=== PATIENT | male | born 1955 | race Caucasian/White ===

== ENCOUNTER 2020-01-25 09:40 | Outpatient (CLI) | payer BC, SELFPAY | END 2020-01-25 09:41 | disposition home or self-care (01) | LOC: WOUND 09:45 | PROVIDERS: Family Provider Family Medicine; Visit Provider Thoracic Surgery (Cardiothoracic Vascular Surgery) | DX: M87.180 Osteonecrosis due to drugs, jaw (principal); T45.1X5A Adverse effect of antineoplastic and immunosuppressive drugs, initial encounter; Y92.9 Unspecified place or not applicable | CPT/HCPCS: G0463 ==

== ENCOUNTER → 2021-09-05 08:48 | Outpatient (BNVA) | payer MEDICARE, OTHER, SELFPAY | PROVIDERS: Family Provider Family Medicine; Referring Provider Registered Nurse; Visit Provider Surgery | DX: Z12.11 Encounter for screening for malignant neoplasm of colon (principal) | CPT/HCPCS: 99024 ==

== ENCOUNTER 2021-11-01 05:46 | Day surgery (SDC) | payer MEDICARE, SELFPAY ==
[2021-10-30 10:50] VITALS: BMI 28.1
[2021-11-01 06:08] VITALS: BP 151/106; PULSE 59; RESP 18; TEMP 36.2; O2SAT 99
[2021-11-01] MEDS: sodium chloride 0.9% 1,000 ML 30 ML IV (06:23)
--- NOTE | 2021-11-01 06:23 | W.PM.OPSFHP ---
Same Day Surgery H&P Indication for Procedure/HPI DATE OF PROCEDURE: November 01, 2021 CHIEF COMPLAINT/INDICATIONFOR SURGICAL PROCEDURE: Screening colonoscopy PREOP DIAGNOSIS: Screening colonoscopy PLANNED PROCEDURE: Operation Date: 11/01/21 07:00 Proposed Procedures p Colonoscopy 84336,Z12.11(Not Applicable) - Jose E Prince MD This is a pleasant 66 years old gentleman referred to my practice for screening colonoscopy. He never had a colonoscopy before and he reports no history of colon cancer. Used to have intermittent bleeding per rectum due to hemorrhoidal disease per his description. But nothing current and no previous abdominal surgeries. ROS All systems have been reviewed negative except as for the above or per problem list. Medications/Allergies* Home Medications Medication Instructions Recorded Confirmed Type amlodipine 10 mg tablet 10 mg PO DAILY 09/05/21 11/01/21 History Allergies/Adverse Reactions Allergy/AdvReac Type Severity Reaction Status Date / Time No Known Allergies Allergy Verified 11/01/21 06:27 Pertinent History/Comorbid Conditions* Social History Smoking and tobacco status: never smoked Pertinent Exam Findings alert, oriented x 3, clear to auscultation bilaterally, regular rate & rhythm and procedure specific exam findings (Abdominal exam nontender nondistended soft) Recommendations Surgery/Procedure today (Colonoscopy with possible biopsy) Other Plans: Plan of care; After thorough history and physical examination and reviewing the chart, plan to perform screening colonoscopy. I discussed with the patient in details the risks,benefits,alternatives and indications.The risk of aspiration, bleeding, soft tissue injury, perforation of the colon and other potential concomitant complications were explained to the patient in details,also the potential need for Laproscoy/Laparotomy to repair any related complications including but not limited to colectomy and or Closotomy.The patient understood this well and did agree to proceed. Rationale was carefully and clearly discussed with the patient.Appropriate informed consent have been reviewed and signed All questions have been answered and all concerns have been addressed to patient's satisfaction. Verbal and written Instructions were given to the patient for colonoscopy prep Coding Level of Care Code Acute Health Care Assistant for Bibiana Bradford
--- NOTE | 2021-11-01 06:57 | ANES.PREANE2 ---
Pre-Anesthetic Assessment Height/Weight: Height 1.73 m Weight 83.915 kg Temp Pulse Resp BP Pulse Ox O2 Del Method 97.2 F L 59 L 18 151/106 99 11/01/21 06:08 11/01/21 06:08 11/01/21 06:08 11/01/21 06:08 11/01/21 06:08 11/01/21 06:08 Preop Diagnosis: Screening colonoscopy Operation Date: 11/01/21 07:00 Proposed Procedures p Colonoscopy [id number],Z12.11(Not Applicable) - Jose E Prince MD Familial anesthetic complications: none Was Beta Gerri taken within 24 hours: N/A Was Clonidine taken within 24 hours: N/A Last intake: Intake Last Liquid Date 10/31/21 Last Liquid Time 23:00 Last Solid Date 10/30/21 Last Solid Time 19:00 Social No alcohol and No tobacco (quit 4 year ago) Exam alert, oriented x 3, clear to auscultation bilaterally and regular rate & rhythm Airway Submandibular: within normal limits Cervical ROM: within normal limits Mallampati: Class II Dentition: chipped Comments: Comments: very poor from radiation Pulmonary None reported CV/HEM Hypertension None reported Hepatic None reported GI None reported Metabolic None reported Musc/skel Lower Back Pain Neuropsych None reported Anesthetic Plan ASA status: 2 Anesthesia: MAC Risk of > 500 ml blood loss (7ml/kg in children): No Medications/Allergies Home Medications Medication Instructions Recorded Confirmed Last Taken Type amlodipine 10 mg tablet 10 mg PO DAILY 09/05/21 11/01/21 10/31/21 History Allergies Allergy/AdvReac Type Severity Reaction Status Date / Time No Known Allergies Allergy Verified 11/01/21 06:27 Current Medications Generic Name Dose Route Start Last Admin Trade Name Kymberly PRN Reason Stop Dose Admin Sodium Chloride 1,000 mls @ 30 mls/hr 11/01/21 06:00 11/01/21 06:23 Sodium Chloride 0.9% IV 11/02/21 05:59 30 mls/hr .Q24H LILIAN Administration PFSH Anesthesia Social History (Updated 09/18/20 @ 10:17 by Nanda Moralez LPN) Smoking and tobacco status: never smoked Data Anesthesia Cardiac Studies: No Data to Display
[2021-11-01 07:40] VITALS: BP 112/80; PULSE 70; RESP 16; TEMP 36.1; O2SAT 97
[2021-11-01 07:45] VITALS: BP 115/75; PULSE 65; RESP 16; O2SAT 97
--- NOTE | 2021-11-01 07:51 | ANE.PACU2 ---
Inpatient post-anesthesia follow up: Airway intact: Yes Vital signs: Temperature 97.0 F Pulse Rate 65 Respiratory Rate 16 Blood Pressure 115/75 Pulse Oximetry 97 Oxygen Delivery Me thod Room Air Oxygen Flow Rate Fraction of Inspir ed Oxygen Hydration adequate: Yes Nausea and vomiting: No Pain level: 1 Mental status: Baseline
[2021-11-01 07:55] VITALS: BP 112/76; PULSE 61; RESP 18; O2SAT 100
== END 2021-11-01 08:12 | disposition home or self-care (01) ==
PROVIDERS: PCP Family Medicine; Visit Provider Surgery
PROC: 0DJD8ZZ Inspection of Lower Intestinal Tract, Via Natural or Artificial Opening Endoscopic (ICD-10-PCS; CPT 45378; principal; 2021-11-01 07:00)
DX: Z12.11 Encounter for screening for malignant neoplasm of colon (principal); K57.30 Diverticulosis of large intestine without perforation or abscess without bleeding; D12.4 Benign neoplasm of descending colon; I10 Essential (primary) hypertension
CPT/HCPCS: 45385; 88305; J2704; J7030

== ENCOUNTER → 2021-11-14 14:51 | Outpatient (BNVA) | payer MEDICARE, SELFPAY | PROVIDERS: PCP Family Medicine; Visit Provider Surgery | DX: Z09 Encounter for follow-up examination after completed treatment for conditions other than malignant neoplasm (principal); K57.31 Diverticulosis of large intestine without perforation or abscess with bleeding; K63.5 Polyp of colon | CPT/HCPCS: 99213 ==

== ENCOUNTER 2021-11-27 10:26 | Outpatient (CLI) | payer MEDICARE, SELFPAY ==
--- NOTE | 2021-11-27 10:50 | XRR_ITS ---
PROCEDURE INFORMATION: Exam: XR Chest Exam date and time: 11/27/2021 10:54 AM Age: 66 years old Clinical indication: Condition or disease; Other: Malignant neoplasm of tongue; Patient HX: HX of tongue, mouth and lymph node cancer TECHNIQUE: Imaging protocol: Radiologic exam of the chest. Views: 2 views. COMPARISON: CT abdomen pelvis w con* [id number] 12/14/2018 11:50 PM FINDINGS: Lungs: Unremarkable. No consolidation. Pleural spaces: Unremarkable. No pleural effusion. No pneumothorax. Heart/Mediastinum: Unremarkable. No cardiomegaly. Bones/joints: Unremarkable. XR/XR chest 2V* [id number] IMPRESSION: No significant abnormality.
== END 2021-11-27 10:27 | disposition home or self-care (01) ==
LOC: RAD 10:30
PROVIDERS: PCP Family Medicine; Visit Provider Specialist
DX: C02.9 Malignant neoplasm of tongue, unspecified (principal)
CPT/HCPCS: 71046